=== PATIENT | male | born 1955 | race Two or more races ===

== ENCOUNTER 2024-06-15 23:29 | Emergency (ER) | payer OTHER ==
[~2024-06-15] VITALS: Ht 175.3 cm; Wt 95.3 kg
[2024-06-15] MEDS ORDERED: ROSUVASTATIN CA10 MG PO (23:38)
== END 2024-06-16 01:38 | disposition home or self-care (01) ==
LOC: ER 23:31
DX: R53.81 Other malaise (principal)